=== PATIENT | male | born 1965 | race Caucasian/White ===

== ENCOUNTER 2024-06-22 18:37 | Inpatient (IN) | payer MEDICARE, OTHER, SELFPAY ==
[2024-06-22] VITALS (38 sets, daily range): BP systolic 156–202; BP diastolic 96–120; PULSE 88–130; RESP 6–29; TEMP 35.9–37.1; O2SAT 90–98; BMI 29.8; BMI 24.4
--- NOTE | 2024-06-22 18:47 | ED_ITS ---
HPI - General Adult General Date Seen: 06/22/24 Chief complaint: Seizure Stated complaint: alcohol withdrawal Time Seen by Provider: 06/22/24 18:46 History of Present Illness HPI narrative: History is limited by patient altered mental status. He was brought in by private car by his friend who reported that he is an alcoholic. He has been through withdrawal 3 times in the past 6 months and has had alcohol withdrawal seizures. Last drink was apparently 48 hours ago. As he was being wheeled up to the triage desk he suffered a generalized tonic- clonic seizure and was rushed immediately back to ER room 6. Seizure stopped around the time he got to ER room 6 and I was responding to his side. As I saw him in the room he was sitting up in his wheelchair, head tipped back, sonorous respirations but no active seizure activity. The nurses and I work together to bottle a lift him from the wheelchair and get him onto his ER bed. We cut off is close to get access and established IV. With concern for potential emesis, We temporarily positioned in the right lateral decubitus position and I help reposition his airway. He did not vomit. Subsequently we were able to roll him on to his back. We sat him up. We were able to secure a 18 gauge IV in his [facility]. Related Data Allergies Allergy/AdvReac Type Severity Reaction Status Date / Time acetaminophen (From Tylenol) Allergy Unknown Verified 06/22/24 19:54 [facility] Medical History (Updated 06/22/24 @ 23:56 by Mark Blanco MD) Thrombocytopenia ?D69.6 - Thrombocytopenia, unspecified (ICD-10) Chronic pain ?G89.29 - Other chronic pain (ICD-10) Cervical spine arthritis ?M47.812 - Spondylosis without myelopathy or radiculopathy, cervical region (ICD-10) Psoriasis ?L40.9 - Psoriasis, unspecified (ICD-10) Lactic acidosis ?E87.20 - Acidosis, unspecified (ICD-10) Acidosis, lactic ?E87.20 - Acidosis, unspecified (ICD-10) Pancreatitis ?K85.90 - Acute pancreatitis without necrosis or infection, unspecified (ICD- 10) Alcoholic hepatitis ?K70.10 - Alcoholic hepatitis without ascites (ICD-10) Alcohol withdrawal seizure ?F10.939 - Alcohol use, unspecified with withdrawal, unspecified (ICD-10) ?R56.9 - Unspecified convulsions (ICD-10) Alcohol use disorder ?F10.90 - Alcohol use, unspecified, uncomplicated (ICD-10) Social History (Updated 06/22/24 @ 23:47 by Mark Blanco MD) Narrative: He lives alone in [facility] apartment. Closest family is his daughter Violette. She is healthcare power of punchboard assembler. He smokes occasional cigars. He drinks at least a pint of Tequila and 2 cans of beer daily. No other recreational drug use. Code status is full. What is your current living situation?: I presently have a place to live Problems where you live: no known problems Problems where you live details: na In the past 12 months, utilities in danger of being shut off: no In past 12 months, lack of transportation kept you from medical appts, meetings, work, or getting things needed for daily living: no In the past 12 mos, have been you worried that your food would run out before you had money to buy more?: never true In the past 12 mos, the food you bought just didn't last and you didn't have money to buy more?: never true Highest level of school completed/degree received: 12th grade, no diploma Smoking Status: Unknown if ever smoked Second hand tobacco smoke exposure: No How often do you have a drink containing alcohol: 4 or more times a week Alcohol type: beer and hard liquor Alcohol type details: 1 pint of tequila and a quart of beer daily How many standard drinks containing alcohol do you have on a typical day: 5 or 6 How often do you have six or more drinks on one occasion: Daily or almost daily AUDIT-C Alcohol total score: 10 Non-prescribed substance use: denies use Caffeine: Yes (hot tea) How often does anyone, including family, friends and others, physically hurt you : never How often does anyone, including family, friends and others, insult or talk down to you: never How often does anyone, including family, friends and others, threaten you with harm: rarely How often does anyone, including family, friends and others, scream or curse at you: never service: No Health Related Social Needs: Other personal risk factors, not elsewhere classified (Z91.89) Exam Narrative: Exam Narrative: Primary Survey: A- sonorous respirations but breathing. B- breathing easily. Lung sounds clear and equal. Oxygen saturation normal on room air 94% C- appears to have sinus tachycardia about 110 on the monitor. no active bleeding. Blood pressure elevated D- GCS is 9 E 4, M 4, V1 but is immediately postictal. Constitutional: Appears well-developed and well-nourished. Drowsy and just finish seizing postictal, sonorous respirations. Skin is somewhat pale, sweaty. HENT: Head: Atraumatic. Nose: Nose normal. Mouth/Throat: Oral mucosa is clear and moist. no trismus. Pharynx normal. Tonsils symmetric. No tonsillar enlargement, erythema, or exudate. Eyes: Conjunctivae normal. EOM normal. Pupils equal, round, and reactive to light. No scleral icterus. Neck: Normal range of motion. Neck supple. No tracheal deviation present. Cardiovascular: Normal rate, regular rhythm. No gallop. No friction rub. No murmur heard. Symmetric radial artery pulses Pulmonary/Chest: Effort normal. No stridor. No respiratory distress. No wheezes. No rales. No rhonchi . Abdominal: Soft. Bowel sounds normal. No distension. No mass. No apparent tenderness. No rebound. No guarding. Musculoskeletal: RUE: Normal range of motion. No tenderness. No deformity LUE: Normal range of motion. No tenderness. No deformity RLE: Normal range of motion. No edema. No tenderness. No deformity LLE: Normal range of motion. No edema. No tenderness. No deformity Neurological: Nurses saw him have a generalized tonic-clonic seizure at triage and they immediately rushed back to ER room 6. Is I enter the room he is not seizing. He is having snoring respirations, limp. As we transfer him back to the bed he does flail his arms, not seizure activity. Seems confused. He is fighting getting undressed and getting exposed. He is not aggressive or dangerously fighting. Skin: Scaly salmon-colored plaques on his knees, periumbilical region, suspicious for 20 for psoriasis Skin is warm and dry. No rash noted. No pallor. Normal capillary refill. Psychiatric: Limited, nonverbal, postictal per Const: Vital Signs, click to edit/add: Vital Signs - 24 hr 06/22/24 18:47 06/22/24 18:58 06/22/24 19:00 Temperature 98.7 F Pulse Rate 118 H 94 Pulse Rate [Pulse Oximeter] Pulse Rate [Right Pulse Oximeter] 102 H Respiratory Rate 18 14 21 Blood Pressure Blood Pressure [Ri ght Arm] Blood Pressure [Ri ght Upper Arm] 202/118 H Pulse Oximetry 94 92 91 Oxygen Delivery Me thod Room Air Oxygen Flow Rate 06/22/24 19:02 06/22/24 19:03 06/22/24 19:20 Temperature Pulse Rate 116 H 130 H Pulse Rate [Pulse Oximeter] Pulse Rate [Right Pulse Oximeter] Respiratory Rate 21 23 12 Blood Pressure 164/103 H Blood Pressure [Ri ght Arm] Blood Pressure [Ri ght Upper Arm] Pulse Oximetry 91 92 Oxygen Delivery Me thod Oxygen Flow Rate 06/22/24 19:21 06/22/24 19:30 06/22/24 19:32 Temperature Pulse Rate 88 93 91 Pulse Rate [Pulse Oximeter] Pulse Rate [Right Pulse Oximeter] Respiratory Rate 18 11 L 17 Blood Pressure 156/96 H 164/105 H Blood Pressure [Ri ght Arm] Blood Pressure [Ri ght Upper Arm] Pulse Oximetry 94 93 93 Oxygen Delivery Me thod Oxygen Flow Rate 06/22/24 19:45 06/22/24 19:47 06/22/24 20:00 Temperature Pulse Rate 108 H 99 111 H Pulse Rate [Pulse Oximeter] Pulse Rate [Right Pulse Oximeter] Respiratory Rate 12 16 11 L Blood Pressure 160/106 H Blood Pressure [Ri ght Arm] Blood Pressure [Ri ght Upper Arm] Pulse Oximetry 92 90 93 Oxygen Delivery Me thod Oxygen Flow Rate 06/22/24 20:02 06/22/24 20:15 06/22/24 20:16 Temperature Pulse Rate 104 H 98 110 H Pulse Rate [Pulse Oximeter] Pulse Rate [Right Pulse Oximeter] Respiratory Rate 19 18 17 Blood Pressure 160/101 H 161/105 H Blood Pressure [Ri ght Arm] Blood Pressure [Ri ght Upper Arm] Pulse Oximetry 92 93 93 Oxygen Delivery Me thod Oxygen Flow Rate 06/22/24 20:17 06/22/24 20:30 06/22/24 20:32 Temperature Pulse Rate 107 H 122 H 119 H Pulse Rate [Pulse Oximeter] Pulse Rate [Right Pulse Oximeter] Respiratory Rate 18 13 20 Blood Pressure 165/105 H Blood Pressure [Ri ght Arm] Blood Pressure [Ri ght Upper Arm] Pulse Oximetry 94 94 95 Oxygen Delivery Me thod Oxygen Flow Rate 06/22/24 20:45 06/22/24 21:00 06/22/24 21:02 Temperature Pulse Rate 114 H 112 H 109 H Pulse Rate [Pulse Oximeter] Pulse Rate [Right Pulse Oximeter] Respiratory Rate 24 24 15 Blood Pressure 162/107 H Blood Pressure [Ri ght Arm] Blood Pressure [Ri ght Upper Arm] Pulse Oximetry 96 96 96 Oxygen Delivery Me thod Oxygen Flow Rate 06/22/24 21:24 06/22/24 21:30 06/22/24 21:31 Temperature Pulse Rate 122 H 105 H 109 H Pulse Rate [Pulse Oximeter] Pulse Rate [Right Pulse Oximeter] Respiratory Rate 26 H 17 29 H Blood Pressure 170/106 H Blood Pressure [Ri ght Arm] Blood Pressure [Ri ght Upper Arm] Pulse Oximetry 92 97 96 Oxygen Delivery Me thod Oxygen Flow Rate 06/22/24 21:34 06/22/24 21:45 06/22/24 21:47 Temperature Pulse Rate 105 H 103 H Pulse Rate [Pulse Oximeter] 114 H Pulse Rate [Right Pulse Oximeter] Respiratory Rate 16 16 15 Blood Pressure 164/105 H Blood Pressure [Ri ght Arm] 170/106 H Blood Pressure [Ri ght Upper Arm] Pulse Oximetry 95 96 97 Oxygen Delivery Me thod Nasal Cannula Oxygen Flow Rate 3 06/22/24 22:00 06/22/24 22:02 06/22/24 22:15 Temperature Pulse Rate 103 H 103 H 98 Pulse Rate [Pulse Oximeter] Pulse Rate [Right Pulse Oximeter] Respiratory Rate 14 15 11 L Blood Pressure 161/109 H Blood Pressure [Ri ght Arm] Blood Pressure [Ri ght Upper Arm] Pulse Oximetry 98 98 97 Oxygen Delivery Me thod Oxygen Flow Rate 06/22/24 22:17 06/22/24 22:30 06/22/24 22:31 Temperature Pulse Rate 100 103 H 99 Pulse Rate [Pulse Oximeter] Pulse Rate [Right Pulse Oximeter] Respiratory Rate 6 L 15 14 Blood Pressure 166/117 H 165/111 H Blood Pressure [Ri ght Arm] Blood Pressure [Ri ght Upper Arm] Pulse Oximetry 97 95 96 Oxygen Delivery Me thod Oxygen Flow Rate 06/22/24 22:32 06/22/24 22:45 06/22/24 22:46 Temperature Pulse Rate 96 96 93 Pulse Rate [Pulse Oximeter] Pulse Rate [Right Pulse Oximeter] Respiratory Rate 15 14 Blood Pressure 156/109 H Blood Pressure [Ri ght Arm] Blood Pressure [Ri ght Upper Arm] Pulse Oximetry 97 94 94 Oxygen Delivery Me thod Oxygen Flow Rate Course Course ED Course: Recheck-185. Resting in bed. Tachycardic 118 on the monitor, blood pressure 190/122. Temperature was 97.3?. Patient is now looking better. No longer pale and diaphoretic. Skin is pink. Skin is dry. He is arousable to loud voice. GCS is now 13 (3,6,4) Reevaluation(s) Reevaluation #1: Recheck-portable chest x-ray shows clear lungs. No evidence for infiltrate or CHF Recheck -740. P.m.. Lactic acid elevated. Suspect due to postictal state. Will recheck in about 1 hour after he completes his 2 L of fluid. Patient is more alert, more conversant. Alert and oriented to person, place, time, following commands. Able to provide some history. It sounds like he is an alcoholic. He reports drinking a pt of hard alcohol as well as a few beers every day, but then if I ask if I should double it he says yes. Sounds like he was drinking up until this afternoon but he wants to quit. He recalls having at least 1 seizure in the past. He does report a history of psoriatic arthritis and rheumatoid arthritis. He is not on any immunomodulatory medications or steroids. He does take gabapentin because of neck pain. He is also on some vitamin supplements. He is a smoker. It sounds like he does have asthma or emphysema. 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 He is not on home oxygen. Rechecking his sats he is hypoxic now on room air. Lung sounds are wheezy and coarse bilaterally. Will order DuoNeb. Still tremulous, tachycardic, hypertensive. Additional benzos and CIWA ordered Recheck-continues to be more alert. GCS 15 now. Oriented to person place and is off on the day of the month by 1 day. He is able to provide some history. It sounds like he quit drinking maybe a day or 2 ago but then had a drink at 3:00 a.m. this afternoon. He he does want to quit drinking. His only medication is gabapentin which he takes for his neck pain. He is also able to tell me that he has a history of psoriatic arthritis and rheumatoid arthritis. He is not on any immunosuppressive meds. Vital Signs Vital signs: Initial Vital Signs Temperature 98.7 F 06/22/24 18:47 Temperature Source Temporal Artery Scan 06/22/24 18:47 Pulse Rate 102 H 06/22/24 18:47 Pulse Rhythm Regular 06/22/24 18:47 Pulse Strength 3+ Normal 06/22/24 18:47 Respiratory Rate 18 06/22/24 18:47 Blood Pressure 202/118 H 06/22/24 18:47 Blood Pressure Mean 146 H 06/22/24 18:47 Blood Pressure Position Sitting 06/22/24 18:47 Pulse Oximetry 94 06/22/24 18:47 Oxygen Delivery Method Room Air 06/22/24 18:47 Vital Signs Temperature 98.7 F 06/22/24 18:47 Pulse Rate 102 H 06/22/24 18:47 Respiratory Rate 18 06/22/24 18:47 Blood Pressure 202/118 H 06/22/24 18:47 Pulse Oximetry 94 06/22/24 18:47 Oxygen Delivery Method Room Air 06/22/24 18:47 Temperature 96.7 F L 06/23/24 02:00 Pulse Rate 89 06/23/24 02:00 Respiratory Rate 18 06/23/24 02:00 Blood Pressure 145/99 H 06/23/24 02:00 Pulse Oximetry 93 06/23/24 02:00 Oxygen Delivery Method Room Air 06/23/24 02:00 Oxygen Flow Rate 3 06/22/24 21:34 Medications Administered Medications: Generic Name Dose Route Start Last Admin Trade Name Freq PRN Reason Stop Dose Admin Dextrose/Lactated Ringer's 1,000 mls @ 125 mls/hr 06/22/24 23:16 06/23/24 00:05 5 % Dextrose In Lac Ringer's IV 125 mls/hr .Q8H PADMA Administration Ibuprofen 400 mg 06/22/24 23:10 06/23/24 00:05 Ibuprofen 400 Mg Tablet PO 400 mg Q4H PRN Administration Omeprazole 20 mg 06/22/24 23:15 06/23/24 00:05 [address]ep[address] PO 20 mg BID PADMA Administration Discontinued Medications Generic Name Dose Route Start Last Admin Trade Name Ashley PRN Reason Stop Dose Admin Albuterol/Ipratropium 1 neb 06/22/24 19:42 06/22/24 20:00 Iprat-Albut 0.5-2.5 Mg/3 Ml Neb IH 06/22/24 19:43 1 neb ONCE ONE Administration Diazepam 10 mg 06/22/24 18:48 06/22/24 18:50 Diazepam 5 Mg/Ml Inj IV 06/22/24 18:49 10 mg ONCE ONE Administration Diazepam 10 mg 06/22/24 19:41 06/22/24 19:56 Diazepam 5 Mg/Ml Inj IV 06/22/24 19:42 10 mg ONCE ONE Administration Diazepam 10 mg 06/22/24 21:15 06/22/24 21:29 Diazepam 5 Mg/Ml Inj IV 06/22/24 21:16 10 mg ONCE ONE Administration Hydromorphone HCl 0.5 mg 06/22/24 21:15 06/22/24 21:31 Hydromorphone 0.5 Mg/0.5 Ml Inj IVP 0.5 mg Q1H PRN Administration Pain Hydromorphone HCl 0.5 mg 06/22/24 23:55 06/23/24 00:05 Hydromorphone 0.5 Mg/0.5 Ml Inj IVP 06/22/24 23:56 0.5 mg ONCE ONE Administration Thiamine HCl 250 mg/ Sodium 102.5 mls @ 102.5 mls/hr 06/22/24 18:50 06/22/24 23:07 Chloride IVPB 06/22/24 18:51 Infused ONCE ONE Infusion Folic Acid 1 mg/ Sodium 50.2 mls @ 100.4 mls/hr 06/22/24 18:49 06/22/24 23:08 Chloride IVPB 06/22/24 18:50 Infused ONCE ONE Infusion Sodium Chloride 1,000 mls @ 1,000 mls/hr 06/22/24 19:00 06/22/24 19:48 0.9 % Sodium Chloride 1000 Ml IV 06/22/24 19:59 Infused .Q1H PADMA Infusion Sodium Chloride 500 mls @ 500 mls/hr 06/22/24 19:30 06/22/24 23:39 0.9 % Sodium Chloride 500 Ml IV 06/22/24 20:29 Not Given .Q1H ONE Sodium Chloride 1,000 mls @ 1,000 mls/hr 06/22/24 19:51 06/22/24 23:08 0.9 % Sodium Chloride 1000 Ml IV 06/22/24 20:50 Infused .Q1H PADMA Infusion Phenobarbital 260 mg/ Sodium 104 mls @ 208 mls/hr 06/22/24 23:54 06/23/24 01:14 Chloride IVPB 06/22/24 23:55 Infused ONCE ONE Infusion Phenobarbital 130 mg 06/22/24 18:48 06/22/24 19:58 Phenobarbital 65 Mg/Ml Inj IVP 06/22/24 18:49 130 mg ONCE ONE Administration Phenobarbital 520 mg 06/22/24 21:52 06/22/24 22:18 Phenobarbital 65 Mg/Ml Inj IVP 06/22/24 21:53 520 mg ONCE ONE Administration Medical Decision Making MDM Narrative Medical decision making narrative: 59-year-old male presents to the ER today from his home with alcohol withdrawal. He actually suffered a generalized tonic clonic seizure at the triage desk just after he came through the front door and was rushed back to the ER for initial resuscitation. Fortunately his seizure was self limited. He was deeply unresponsive, near comatose in the for seconds after the seizure, due to postictal phase. He required airway positioning and rolling. Blood sugar was normal. Stat head CT was normal. Fortunately mental status gradually and steadily improved. He ultimately became more alert. Therefore did not require intubation for airway protection. He is displaying other signs of alcohol withdrawal including tremulousness, tachycardia, and hypertension. We administered serial doses of IV diazepam and phenobarbital here in the ER. Will be admitted to the in the ICU for alcohol withdrawal. Thiamine and folate administered. Initial laboratory workup showed a lactic of 18. This normalized down to 2.4 after infusion of 2 L of crystalloid and time. Suspect his initial lactic acidosis was due to seizure activity rather than sepsis or critical illness. Initial metabolic profile showed a low bicarb and a markedly widened anion gap, due to lactic acidosis. Blood sugar was 238. After fluent confirm a repeat BMP shows good correction of the anion gap indicating was likely due to his lactic acidosis. At this point no evidence for DKA a. No definitive evidence for alcoholic ketoacidosis. Liver function tests are abnormal, likely due to alcohol consumption. Labs also show lipase of 640. He is not having any abdominal pain or tenderness so this point unclear if this truly represents alcoholic pancreatitis. Graciously admitted to the ICU by Dr. Blanco, hospitalist Lab Data Labs: Lab Results 06/22/24 06/22/24 06/22/24 Range/Units 18:45 18:45 18:45 WBC 5.95 (4.50-11.00) K/uL RBC 4.44 (4.30-5.90) m/uL Hgb 14.4 (13.5-17.5) gm/dL Hct 44.1 (37.0-53.0) % MCV 99 (80-100) fL MCH 32 (26-34) pg MCHC 33 (32-36) gm/dL RDW Coeff of Velasquez 15.5 (11.5-15.5) % Plt Count 74 L (140-440) K/uL Neut % (Auto) 54.6 (42.0-72.0) % Lymph % (Auto) 24.4 (20-44) % Tyler % (Auto) 17.0 H (0.0-11.0) % Eos % (Auto) 0.5 (0.0-7.0) % Baso % (Auto) 0.3 (0.0-3.0) % Neut # (Auto) 3.25 (1.7-7.0) K/uL Lymph # (Auto) 1.45 (0.90-2.90) K/uL Tyler # (Auto) 1.00 H (0.00-0.90) K/UL Eos # (Auto) 0.03 (0.00-0.50) K/uL Baso # (Auto) 0.02 (0.00-0.30) K/uL Abs Immat Gran (auto) 0.19 (0.00-0.30) K/uL Imm/Tot Granulo (auto) 3.2 % Diff Slide Review Acceptable Review (Acceptable) INR 0.96 (0.91-1.10) APTT 24 (23-33) Seconds VBG pH (7.32-7.43) VBG pCO2 (40-50) mmHG VBG pO2 (25-47) mmHG VBG HCO3 (21-28) mmol/L Sodium 137 (135-149) mmol/L Potassium 3.5 L (3.6-5.1) mmol/L Chloride 95 L (96-114) mmol/L Carbon Dioxide 9 L* (20-32) mmol/L Anion Gap 33 H (7-15) mEq/L BUN 8 (7-30) mg/dL Creatinine 1.2 (0.5-1.5) mg/dL Estimated Creat Clear 72.75 Estimated GFR 70 ml/min Glucose 266 H (60-115) mg/dL Lactate 18.0 H* (0.5-1.9) mmol/L Calcium 9.7 (8.4-10.6) mg/dL Phosphorus 3.7 (2.5-4.5) mg/dL Magnesium 1.8 (1.5-2.6) mg/dL Total Bilirubin 1.8 H (0.1-1.5) mg/dL AST 368 H (12-35) U/L ALT 200 H (4-50) U/L Alkaline Phosphatase 127 (40-150) U/L Troponin I 0.03 Cancelled (0.01-0.04) ng/mL Total Protein 8.3 (6.0-8.3) g/dL Albumin 5.3 H (3.3-5.0) g/dL Lipase 640 H (23-300) U/L Urine Color (Yellow) Urine Appearance (Clear) Urine pH (5.0-8.5) Ur Specific Greenfield (1.000-1.030) Urine Protein (Negative) Urine Glucose (UA) (Negative) Urine Ketones (Negative) Urine Blood (Negative) Urine Nitrite (Negative) Urine Bilirubin (Negative) Urine Urobilinogen (0.2-1.0) Ur Leukocyte Esterase (Negative) Urine RBC (0-2) Urine WBC (0-5) Ur Squamous Epith Cells (None-Few) Urine Bacteria (None) Urine Opiates Screen (Negative) Ur Oxycodone Screen (Negative) Urine Methadone Screen (Negative) Ur Barbiturates Screen (Negative) U Tricyclic Antidepress (Negative) Ur Phencyclidine Scrn (Negative) Ur Amphetamines Screen (Negative) U Methamphetamines Scrn (Negative) U Benzodiazepines Scrn (Negative) Urine Cocaine Screen (Negative) U Marijuana (THC) Screen (Negative) Ur Drug Screen Comment Ethyl Alcohol < 0.01 L Cancelled (0.01-0.03) % SARS-CoV-2 (PCR) Negative SARS-CoV-2 (Negative) Influenza Type A (PCR) Negative PCR FLU A (Negative) Influenza Type B (PCR) Negative PCR FLU B (Negative) 06/22/24 06/22/24 06/22/24 Range/Units 18:50 19:56 20:30 WBC (4.50-11.00) K/uL RBC (4.30-5.90) m/uL Hgb (13.5-17.5) gm/dL Hct (37.0-53.0) % MCV (80-100) fL MCH (26-34) pg MCHC (32-36) gm/dL RDW Coeff of Velasquez (11.5-15.5) % Plt Count (140-440) K/uL Neut % (Auto) (42.0-72.0) % Lymph % (Auto) (20-44) % Tyler % (Auto) (0.0-11.0) % Eos % (Auto) (0.0-7.0) % Baso % (Auto) (0.0-3.0) % Neut # (Auto) (1.7-7.0) K/uL Lymph # (Auto) (0.90-2.90) K/uL Tyler # (Auto) (0.00-0.90) K/UL Eos # (Auto) (0.00-0.50) K/uL Baso # (Auto) (0.00-0.30) K/uL Abs Immat Gran (auto) (0.00-0.30) K/uL Imm/Tot Granulo (auto) % Diff Slide Review (Acceptable) INR (0.91-1.10) APTT (23-33) Seconds VBG pH 7.451 H (7.32-7.43) VBG pCO2 33 L (40-50) mmHG VBG pO2 51.7 H (25-47) mmHG VBG HCO3 23 (21-28) mmol/L Sodium 133 L (135-149) mmol/L Potassium 3.6 (3.6-5.1) mmol/L Chloride 99 (96-114) mmol/L Carbon Dioxide 20 (20-32) mmol/L Anion Gap 14 (7-15) mEq/L BUN 8 (7-30) mg/dL Creatinine 0.9 (0.5-1.5) mg/dL Estimated Creat Clear 97.00 Estimated GFR 98 ml/min Glucose 238 H (60-115) mg/dL Lactate (0.5-1.9) mmol/L Calcium 9.0 (8.4-10.6) mg/dL Phosphorus (2.5-4.5) mg/dL Magnesium (1.5-2.6) mg/dL Total Bilirubin (0.1-1.5) mg/dL AST (12-35) U/L ALT (4-50) U/L Alkaline Phosphatase (40-150) U/L Troponin I (0.01-0.04) ng/mL Total Protein (6.0-8.3) g/dL Albumin (3.3-5.0) g/dL Lipase (23-300) U/L Urine Color Yellow (Yellow) Urine Appearance Clear (Clear) Urine pH 7.0 (5.0-8.5) Ur Specific Greenfield 1.020 (1.000-1.030) Urine Protein 2+ A (Negative) Urine Glucose (UA) 3+ A (Negative) Urine Ketones 2+ A (Negative) Urine Blood Trace-lysed A (Negative) Urine Nitrite Negative (Negative) Urine Bilirubin Negative (Negative) Urine Urobilinogen 2.0 A (0.2-1.0) Ur Leukocyte Esterase Negative (Negative) Urine RBC 0-2 (0-2) Urine WBC 0-2 (0-5) Ur Squamous Epith Cells Few (None-Few) Urine Bacteria None (None) Urine Opiates Screen Negative (Negative) Ur Oxycodone Screen Negative (Negative) Urine Methadone Screen Negative (Negative) Ur Barbiturates Screen POSITIVE A (Negative) U Tricyclic Antidepress Negative (Negative) Ur Phencyclidine Scrn Negative (Negative) Ur Amphetamines Screen Negative (Negative) U Methamphetamines Scrn Negative (Negative) U Benzodiazepines Scrn Negative (Negative) Urine Cocaine Screen Negative (Negative) U Marijuana (THC) Screen Negative (Negative) Ur Drug Screen Comment See Note Ethyl Alcohol (0.01-0.03) % SARS-CoV-2 (PCR) (Negative) Influenza Type A (PCR) (Negative) Influenza Type B (PCR) (Negative) 06/22/24 Range/Units 21:10 WBC (4.50-11.00) K/uL RBC (4.30-5.90) m/uL Hgb (13.5-17.5) gm/dL Hct (37.0-53.0) % MCV (80-100) fL MCH (26-34) pg MCHC (32-36) gm/dL RDW Coeff of Velasquez (11.5-15.5) % Plt Count (140-440) K/uL Neut % (Auto) (42.0-72.0) % Lymph % (Auto) (20-44) % Tyler % (Auto) (0.0-11.0) % Eos % (Auto) (0.0-7.0) % Baso % (Auto) (0.0-3.0) % Neut # (Auto) (1.7-7.0) K/uL Lymph # (Auto) (0.90-2.90) K/uL Tyler # (Auto) (0.00-0.90) K/UL Eos # (Auto) (0.00-0.50) K/uL Baso # (Auto) (0.00-0.30) K/uL Abs Immat Gran (auto) (0.00-0.30) K/uL Imm/Tot Granulo (auto) % Diff Slide Review (Acceptable) INR (0.91-1.10) APTT (23-33) Seconds VBG pH (7.32-7.43) VBG pCO2 (40-50) mmHG VBG pO2 (25-47) mmHG VBG HCO3 (21-28) mmol/L Sodium (135-149) mmol/L Potassium (3.6-5.1) mmol/L Chloride (96-114) mmol/L Carbon Dioxide (20-32) mmol/L Anion Gap (7-15) mEq/L BUN (7-30) mg/dL Creatinine (0.5-1.5) mg/dL Estimated Creat Clear Estimated GFR ml/min Glucose (60-115) mg/dL Lactate 2.4 H (0.5-1.9) mmol/L Calcium (8.4-10.6) mg/dL Phosphorus (2.5-4.5) mg/dL Magnesium (1.5-2.6) mg/dL Total Bilirubin (0.1-1.5) mg/dL AST (12-35) U/L ALT (4-50) U/L Alkaline Phosphatase (40-150) U/L Troponin I (0.01-0.04) ng/mL Total Protein (6.0-8.3) g/dL Albumin (3.3-5.0) g/dL Lipase (23-300) U/L Urine Color (Yellow) Urine Appearance (Clear) Urine pH (5.0-8.5) Ur Specific [place] (1.000-1.030) Urine Protein (Negative) Urine Glucose (UA) (Negative) Urine Ketones (Negative) Urine Blood (Negative) Urine Nitrite (Negative) Urine Bilirubin (Negative) Urine Urobilinogen (0.2-1.0) Ur Leukocyte Esterase (Negative) Urine RBC (0-2) Urine WBC (0-5) Ur Squamous Epith Cells (None-Few) Urine Bacteria (None) Urine Opiates Screen (Negative) Ur Oxycodone Screen (Negative) Urine Methadone Screen (Negative) Ur Barbiturates Screen (Negative) U Tricyclic Antidepress (Negative) Ur Phencyclidine Scrn (Negative) Ur Amphetamines Screen (Negative) U Methamphetamines Scrn (Negative) U Benzodiazepines Scrn (Negative) Urine Cocaine Screen (Negative) U Marijuana (THC) Screen (Negative) Ur Drug Screen Comment Ethyl Alcohol (0.01-0.03) % SARS-CoV-2 (PCR) (Negative) Influenza Type A (PCR) (Negative) Influenza Type B (PCR) (Negative) Imaging Data Chest x-ray: Attestation: I have reviewed the pertinent imaging results. My impression: No acute infiltrate. Clear lungs. Radiologist's impression: IMPRESSION: No acute cardiopulmonary process. CT scan - head: Attestation: I have reviewed the pertinent imaging results. Radiologist's impression: IMPRESSION: No acute or suspicious intracranial abnormality. ECG Data Attestation: I personally reviewed and interpreted this ECG as follows: Interpretation: Sinus tachycardia Rate: 129 VA: 100-120 QRS axis: Normal QRS axis. No pathologic Q-waves ST segment/T wave: No ST segment elevation or depression QTc: 465 Discharge Plan Discharge Clinical Impression: Alcohol withdrawal, Seizure, Acidosis, lactic, Hypoxia, Abnormal serum level of lipase Patient Disposition: Admitted As Observation
[2024-06-22] MEDS: 0.9 % SODIUM CHLORIDE 1000 ml 1,000 ML IV ×2 (18:50→19:52)
[2024-06-22] MEDS: diazePAM 5 MG/ML inj 10 MG IV ×3 (18:50→21:29)
[2024-06-22 19:05] LABS: Basophils Absolute Auto 0.02 K/uL (0.00-0.30); Basophils Percent Auto 0.3 % (0.0-3.0); Eosinophils Absolute Auto 0.03 K/uL (0.00-0.50); Eosinophils Percent Auto 0.5 % (0.0-7.0); Hematocrit 44.1 % (37.0-53.0); Hemoglobin* 14.4 gm/dL (13.5-17.5); Immature Granulocytes Abs Auto 0.19 K/uL (0.00-0.30); Immature Granulocytes Pct Auto 3.2 %; Lymphocytes Absolute Auto 1.45 K/uL (0.90-2.90); Lymphocytes Percent Auto 24.4 % (20-44); Mean Corpuscular HGB Conc 33 gm/dL (32-36); Mean Corpuscular Hemoglobin 32 pg (26-34); Mean Corpuscular Volume 99 fL (80-100); Neutrophils Absolute Auto 3.25 K/uL (1.7-7.0); Neutrophils Percent Auto 54.6 % (42.0-72.0); Platelet Count* 74 K/uL (140-440); RDW Coefficient of Variation % 15.5 % (11.5-15.5); Red Blood Count 4.44 m/uL (4.30-5.90); White Blood Count* 5.95 K/uL (4.50-11.00)
[2024-06-22 19:24] LABS: Albumin* 5.3 g/dL (3.3-5.0); Chloride* 95 mmol/L (96-114)
[2024-06-22 19:25] LABS: Potassium* 3.5 mmol/L (3.6-5.1); Sodium* 137 mmol/L (135-149)
[2024-06-22 19:27] LABS: Anion Gap 33 mEq/L (7-15); Bilirubin Total* 1.8 mg/dL (0.1-1.5); Blood Urea Nitrogen* 8 mg/dL (7-30); Creatinine* 1.2 mg/dL (0.5-1.5); Est. Creatinine Clearance* 72.75; Estimated Glomerular Filt Rate 70 ml/min; Total Protein* 8.3 g/dL (6.0-8.3)
[2024-06-22 19:28] LABS: Alkaline Phosphatase* 127 U/L (40-150); Aspartate Amino Transferase* 368 U/L (12-35); Calcium* 9.7 mg/dL (8.4-10.6); Glucose* 266 mg/dL (60-115); Lipase* 640 U/L (23-300); Magnesium* 1.8 mg/dL (1.5-2.6)
[2024-06-22 19:30] LABS: Ethanol* < 0.01 % (0.01-0.03)
[2024-06-22 19:34] LABS: Carbon Dioxide* 9 mmol/L (20-32)
[2024-06-22 19:35] LABS: Alanine Aminotransferase* 200 U/L (4-50)
[2024-06-22 19:40] LABS: PCR FLU A Negative PCR FLU A (Negative); PCR FLU B Negative PCR FLU B (Negative); SARS PCR* Negative SARS-CoV-2 (Negative); Troponin I* 0.03 ng/mL (0.01-0.04)
[2024-06-22 19:56] LABS: INR 0.96 (0.91-1.10); Partial Thromboplastin Time* 24 Seconds (23-33); Prothrombin Time 13.5 Seconds
[2024-06-22 19:57] LABS: Phosphorus* 3.7 mg/dL (2.5-4.5)
[2024-06-22] MEDS: PHENobarbitaL 65 MG/ML inj 130 MG IVP (19:58)
[2024-06-22] MEDS: IPRAT-ALBUT 0.5-2.5 MG/3 ML NEB 1 NEB IH (20:00)
[2024-06-22 20:01] LABS: HCO3 VBG 23 mmol/L (21-28); PCO2 VBG 33 mmHG (40-50); PO2 VBG 51.7 mmHG (25-47); pH VBG 7.451 (7.32-7.43)
[2024-06-22] MEDS: THIAMINE 250 MG in 0.9 % SODIUM CHLORIDE 100 ml 100 ML 102.5 MG IVPB (20:04)
[2024-06-22] MEDS: FOLIC ACID 1 MG in 0.9 % SODIUM CHLORIDE 50 ml 50 ML 100.4 MG IVPB (20:05)
[2024-06-22 20:48] LABS: Appearance Urine Clear (Clear); Bilirubin Urine Negative (Negative); Blood Urine Trace-lysed (Negative); Color Urine Yellow (Yellow); Glucose Urine 3+ (Negative); Ketones Urine 2+ (Negative); Leukocyte Esterase Urine Negative (Negative); Nitrite Urine Negative (Negative); Protein Urine 2+ (Negative)
[2024-06-22 20:48] LABS: Chloride* 99 mmol/L (96-114)
[2024-06-22 20:49] LABS: Potassium* 3.6 mmol/L (3.6-5.1); Sodium* 133 mmol/L (135-149)
[2024-06-22 20:52] LABS: Anion Gap 14 mEq/L (7-15); Blood Urea Nitrogen* 8 mg/dL (7-30); Carbon Dioxide* 20 mmol/L (20-32); Creatinine* 0.9 mg/dL (0.5-1.5); Estimated Glomerular Filt Rate 98 ml/min; Glucose* 238 mg/dL (60-115)
[2024-06-22 21:16] LABS: Lactate* 2.4 mmol/L (0.5-1.9)
[2024-06-22 21:20] LABS: RBC Urine 0-2 (0-2); Squamous Epithelial Cell Urine Few (None-Few); WBC Urine 0-2 (0-5)
[2024-06-22] MEDS: HYDROmorphone 0.5 mg/0.5 ml inj IVP (21:31)
[2024-06-22 21:34] LABS: Slide Review Reflex Yes
[2024-06-22 21:39] LABS: Slide Review Acceptable Review (Acceptable)
[2024-06-22] MEDS: PHENobarbitaL 65 MG/ML inj 520 MG IVP (22:18)
--- NOTE | 2024-06-22 23:36 | PM.IMHP1 ---
Hospitalist- H&P: PRETTY History of Present Illness Date Seen: 06/22/24 Chief complaint: Alcohol withdrawal Narrative: Blayne Carter is a 59 year old male with history of alcohol use disorder and alcohol withdrawal seizures admitted to the hospital with alcohol withdrawal seizure. He was brought to the emergency room by his daughter's boyfriend. He has dropped off and had a seizure while he was checking into the emergency department. Immediately brought back to a room where the seizure spontaneously stopped. He was postictal for a while. He received multiple doses of diazepam and a partial load of phenobarbital. Since then he has been improving with signs and symptoms of withdrawal and had no further seizures. He had a fairly severe lactic acidosis initially. That has improved with time and 2 L of normal saline. Patient is somewhat sedated but is able to answer some questions at this time. He tells me he stop drinking 2 days ago. Unclear why stop drinking but he tells me he is not feeling well and also stopped eating. A reports a poor appetite and nausea but he has not been vomiting. He tells me his biggest concern is his chronic pain problems. He reports generalized musculoskeletal pain especially in his C-spine, shoulders, feet and also residual pain from an L5 fracture. He takes ibuprofen at home for pain management. He was hospitalized in December 2023 in [place] for a syncopal episode that occurred while he was drinking alcohol at a restaurant. Stayed overnight in the emergency department and woke up the next day and went home. In April of 2024 he was in [place] [facility] when he had a seizure which was probably an alcohol withdrawal seizure. Again hospitalized overnight and discharged to home. He has declined offers of treatment for alcohol use disorder. [facility] Medical History (Updated 06/22/24 @ 23:56 by Mark Blanco MD) Thrombocytopenia ?D69.6 - Thrombocytopenia, unspecified (ICD-10) Chronic pain ?G89.29 - Other chronic pain (ICD-10) Cervical spine arthritis ?M47.812 - Spondylosis without myelopathy or radiculopathy, cervical region (ICD-10) Psoriasis ?L40.9 - Psoriasis, unspecified (ICD-10) Lactic acidosis ?E87.20 - Acidosis, unspecified (ICD-10) Acidosis, lactic ?E87.20 - Acidosis, unspecified (ICD-10) Pancreatitis ?K85.90 - Acute pancreatitis without necrosis or infection, unspecified (ICD-10) Alcoholic hepatitis ?K70.10 - Alcoholic hepatitis without ascites (ICD-10) Alcohol withdrawal seizure ?F10.939 - Alcohol use, unspecified with withdrawal, unspecified (ICD-10) ?R56.9 - Unspecified convulsions (ICD-10) Alcohol use disorder ?F10.90 - Alcohol use, unspecified, uncomplicated (ICD-10) Social History (Updated 06/22/24 @ 23:47 by Mark Blanco MD) Narrative: He lives alone in [facility] apartment. Closest family is his daughter Violette. She is healthcare power of employment attorney. He smokes occasional cigars. He drinks at least a pint of Tequila and 2 cans of beer daily. No other recreational drug use. Code status is full. What is your current living situation?: I presently have a place to live Problems where you live: no known problems Problems where you live details: na In the past 12 months, utilities in danger of being shut off: no In past 12 months, lack of transportation kept you from medical appts, meetings, work, or getting things needed for daily living: no In the past 12 mos, have been you worried that your food would run out before you had money to buy more?: never true In the past 12 mos, the food you bought just didn't last and you didn't have money to buy more?: never true Highest level of school completed/degree received: 12th grade, no diploma Smoking Status: Unknown if ever smoked Second hand tobacco smoke exposure: No How often do you have a drink containing alcohol: 4 or more times a week Alcohol type: beer and hard liquor Alcohol type details: 1 pint of tequila and a quart of beer daily How many standard drinks containing alcohol do you have on a typical day: 5 or 6 How often do you have six or more drinks on one occasion: Daily or almost daily AUDIT-C Alcohol total score: 10 Non-prescribed substance use: denies use Caffeine: Yes (hot tea) How often does anyone, including family, friends and others, physically hurt you: never How often does anyone, including family, friends and others, insult or talk down to you: never How often does anyone, including family, friends and others, threaten you with harm: rarely How often does anyone, including family, friends and others, scream or curse at you: never service: No Health Related Social Needs: Other personal risk factors, not elsewhere classified (Z91.89) Meds Home Medications and Allergies Home Medication Comments: Patient indicates using inhalers, Spiriva, Symbicort, Ventolin. He takes vitamins. He also takes atenolol. He ran out of gabapentin. He takes ibuprofen regularly. Takes a number of vitamin supplements but is not sure which ones. Allergies Allergy/AdvReac Type Severity Reaction Status Date / Time acetaminophen (From Tylenol) Allergy Unknown Verified 06/22/24 19:54 Exam Narrative: Exam Narrative: He is sleepy but arouses to voice. He is not oriented to his place or circumstances. He is unsure how he got here. He does not recall any of the events leading up to his coming to the hospital. He is unable to tell me much detail about the last 2 days other than he stop drinking and he has not been eating. Eyes normal. Sclerae nonicteric. Extraocular movements are full. No nystagmus. Oropharynx is normal. There is no facial asymmetry. Neck is supple without mass or adenopathy. Respirations are clear to auscultation. Cardiovascular: S1, S2, borderline tachycardia, regular rate and rhythm. Abdomen: Bowel sounds active. Abdomen is soft. He has no significant tenderness but a little bit of voluntary guarding with palpation in the epigastrium. No peritonitis. No mass. Extremities without significant tremulousness. He moves all 4 extremities well. No significant edema. Skin is notable for significant psoriatic plaques over knees and feet. Const: Vital Signs, click to edit/add: Vital Signs - 24 hr 06/22/24 18:47 06/22/24 18:58 06/22/24 19:00 Temperature 98.7 F Pulse Rate 118 H 94 Pulse Rate [Pulse Oximeter] Pulse Rate [Right Pulse Oximeter] 102 H Respiratory Rate 18 14 21 Blood Pressure Blood Pressure [Ri ght Arm] Blood Pressure [Ri ght Upper Arm] 202/118 H Pulse Oximetry 94 92 91 Oxygen Delivery Me thod Room Air Oxygen Flow Rate 06/22/24 19:02 06/22/24 19:03 06/22/24 19:20 Temperature Pulse Rate 116 H 130 H Pulse Rate [Pulse Oximeter] Pulse Rate [Right Pulse Oximeter] Respiratory Rate 21 23 12 Blood Pressure 164/103 H Blood Pressure [Ri ght Arm] Blood Pressure [Ri ght Upper Arm] Pulse Oximetry 91 92 Oxygen Delivery Me thod Oxygen Flow Rate 06/22/24 19:21 06/22/24 19:30 06/22/24 19:32 Temperature Pulse Rate 88 93 91 Pulse Rate [Pulse Oximeter] Pulse Rate [Right Pulse Oximeter] Respiratory Rate 18 11 L 17 Blood Pressure 156/96 H 164/105 H Blood Pressure [Ri ght Arm] Blood Pressure [Ri ght Upper Arm] Pulse Oximetry 94 93 93 Oxygen Delivery Me thod Oxygen Flow Rate 06/22/24 19:45 06/22/24 19:47 06/22/24 20:00 Temperature Pulse Rate 108 H 99 111 H Pulse Rate [Pulse Oximeter] Pulse Rate [Right Pulse Oximeter] Respiratory Rate 12 16 11 L Blood Pressure 160/106 H Blood Pressure [Ri ght Arm] Blood Pressure [Ri ght Upper Arm] Pulse Oximetry 92 90 93 Oxygen Delivery Me thod Oxygen Flow Rate 06/22/24 20:02 06/22/24 20:15 06/22/24 20:16 Temperature Pulse Rate 104 H 98 110 H Pulse Rate [Pulse Oximeter] Pulse Rate [Right Pulse Oximeter] Respiratory Rate 19 18 17 Blood Pressure 160/101 H 161/105 H Blood Pressure [Ri ght Arm] Blood Pressure [Ri ght Upper Arm] Pulse Oximetry 92 93 93 Oxygen Delivery Me thod Oxygen Flow Rate 06/22/24 20:17 06/22/24 20:30 06/22/24 20:32 Temperature Pulse Rate 107 H 122 H 119 H Pulse Rate [Pulse Oximeter] Pulse Rate [Right Pulse Oximeter] Respiratory Rate 18 13 20 Blood Pressure 165/105 H Blood Pressure [Ri ght Arm] Blood Pressure [Ri ght Upper Arm] Pulse Oximetry 94 94 95 Oxygen Delivery Me thod Oxygen Flow Rate 06/22/24 20:45 06/22/24 21:00 06/22/24 21:02 Temperature Pulse Rate 114 H 112 H 109 H Pulse Rate [Pulse Oximeter] Pulse Rate [Right Pulse Oximeter] Respiratory Rate 24 24 15 Blood Pressure 162/107 H Blood Pressure [Ri ght Arm] Blood Pressure [Ri ght Upper Arm] Pulse Oximetry 96 96 96 Oxygen Delivery Me thod Oxygen Flow Rate 06/22/24 21:24 06/22/24 21:30 06/22/24 21:31 Temperature Pulse Rate 122 H 105 H 109 H Pulse Rate [Pulse Oximeter] Pulse Rate [Right Pulse Oximeter] Respiratory Rate 26 H 17 29 H Blood Pressure 170/106 H Blood Pressure [Ri ght Arm] Blood Pressure [Ri ght Upper Arm] Pulse Oximetry 92 97 96 Oxygen Delivery Me thod Oxygen Flow Rate 06/22/24 21:34 06/22/24 21:45 06/22/24 21:47 Temperature Pulse Rate 105 H 103 H Pulse Rate [Pulse Oximeter] 114 H Pulse Rate [Right Pulse Oximeter] Respiratory Rate 16 16 15 Blood Pressure 164/105 H Blood Pressure [Ri ght Arm] 170/106 H Blood Pressure [Ri ght Upper Arm] Pulse Oximetry 95 96 97 Oxygen Delivery Me thod Nasal Cannula Oxygen Flow Rate 3 06/22/24 22:00 06/22/24 22:02 06/22/24 22:15 Temperature Pulse Rate 103 H 103 H 98 Pulse Rate [Pulse Oximeter] Pulse Rate [Right Pulse Oximeter] Respiratory Rate 14 15 11 L Blood Pressure 161/109 H Blood Pressure [Ri ght Arm] Blood Pressure [Ri ght Upper Arm] Pulse Oximetry 98 98 97 Oxygen Delivery Me thod Oxygen Flow Rate 06/22/24 22:17 06/22/24 22:30 06/22/24 22:31 Temperature Pulse Rate 100 103 H 99 Pulse Rate [Pulse Oximeter] Pulse Rate [Right Pulse Oximeter] Respiratory Rate 6 L 15 14 Blood Pressure 166/117 H 165/111 H Blood Pressure [Ri ght Arm] Blood Pressure [Ri ght Upper Arm] Pulse Oximetry 97 95 96 Oxygen Delivery Me thod Oxygen Flow Rate 06/22/24 22:32 06/22/24 22:45 06/22/24 22:46 Temperature Pulse Rate 96 96 93 Pulse Rate [Pulse Oximeter] Pulse Rate [Right Pulse Oximeter] Respiratory Rate 15 14 Blood Pressure 156/109 H Blood Pressure [Ri ght Arm] Blood Pressure [Ri ght Upper Arm] Pulse Oximetry 97 94 94 Oxygen Delivery Me thod Oxygen Flow Rate Documenting provider has reviewed patient's vital signs: yes Hospitalist - H&P: Result Labs Labs: Short CBC 06/22/24 Range/Units 18:45 WBC 5.95 (4.50-11.00) K/uL Hgb 14.4 (13.5-17.5) gm/dL Hct 44.1 (37.0-53.0) % Plt Count 74 L (140-440) K/uL BMP 06/22/24 06/22/24 18:45 20:30 Sodium 137 133 L Potassium 3.5 L 3.6 Chloride 95 L 99 Carbon Dioxide 9 L* 20 BUN 8 8 Creatinine 1.2 0.9 Glucose 266 H 238 H Calcium 9.7 9.0 Cardiac Enzymes 06/22/24 06/22/24 Range/Units 18:45 18:45 Troponin I 0.03 Cancelled (0.01-0.04) ng/mL Liver Function 06/22/24 Range/Units 18:45 Total Bilirubin 1.8 H (0.1-1.5) mg/dL AST 368 H (12-35) U/L ALT 200 H (4-50) U/L Alkaline Phosphatase 127 (40-150) U/L Albumin 5.3 H (3.3-5.0) g/dL Urine 06/22/24 Range/Units 18:50 Urine Color Yellow (Yellow) Urine Appearance Clear (Clear) Urine pH 7.0 (5.0-8.5) Ur Specific [place] 1.020 (1.000-1.030) Urine Protein 2+ A (Negative) Urine Glucose (UA) 3+ A (Negative) Assessment and Plan Assessment and plan (1) Alcohol withdrawal seizure: Problem comment: Recurrent alcohol withdrawal seizure. Received diazepam and phenobarbital. Status: Acute (2) Alcoholic hepatitis: Problem comment: Elevated transaminases, AST greater than ALT, likely due to alcohol abuse. Follow clinically Status: Acute (3) Pancreatitis: Problem comment: Biochemical pancreatitis without abdominal pain, likely due to alcohol abuse. Follow clinically Status: Acute (4) Chronic pain: Problem comment: Generalized arthritis pain including C-spine, shoulders, feet and ankles. Avoid opiates if possible due to risks with benzodiazepines and substance abuse history. Status: Acute (5) Thrombocytopenia: Problem comment: Possibly related to complications of cirrhosis of the liver and portal hypertension Status: Acute (6) Acidosis, lactic: Problem comment: Due to alcohol abuse, suspected cirrhosis and seizure seizure. Status: Acute (7) Alcohol use disorder: Problem comment: Recommend treatment to work towards abstinence Status: Acute Plan 59-year-old male with recurrent alcohol withdrawal seizures admitted to the hospital for ongoing evaluation management of alcohol withdrawal. Admitted to the CCU for close monitoring and management of alcohol withdrawal. Total Time Spent Total Time Spent: Total time spent today is 70 minutes in critical care evaluation and management
[2024-06-22 23:47] LABS: Amphetamine Screen Urine Negative (Negative); Barbiturate Screen Urine POSITIVE (Negative); Benzodiazepines Screen Urine Negative (Negative); Cannabinoid Screen Urine Negative (Negative); Cocaine Screen Urine Negative (Negative); Methadone Screen Urine Negative (Negative); Methamphetamines Screen Urine Negative (Negative); Opiate Screen Urine Negative (Negative); Oxycodone Screen Urine Negative (Negative); Phencyclidine Screen Urine Negative (Negative); Tricyclic Antidepressant Urine Negative (Negative)
[2024-06-23] VITALS (18 sets, daily range): BP systolic 83–148; BP diastolic 55–114; PULSE 72–109; RESP 14–20; TEMP 35.7–36.4; O2SAT 92–97
[2024-06-23] MEDS: IBUPROFEN 400 MG TABLET PO ×2 (00:05→20:30)
[2024-06-23] MEDS: HYDROmorphone 0.5 mg/0.5 ml inj IVP (00:05)
[2024-06-23] MEDS: OMEPRAZOLE 20 MG CAPSULE DR PO ×3 (00:05→21:09)
[2024-06-23] MEDS: 5 % DEXTROSE IN LAC RINGER'S 1,000 ML 125 ML IV ×4 (00:05→23:36)
[2024-06-23] MEDS: PHENobarbitaL 260 MG in 0.9 % SODIUM CHLORIDE 100 ml 100 ML 208 MG IVPB (00:18)
[2024-06-23] MEDS: LORazepam 2 MG/ML inj 1 MG IVP (04:05)
--- NOTE | 2024-06-23 05:30 | PC.NURSE ---
End of shift report [id number]: Pleasant and cooperative with cares. Alert and oriented x 4. Pain to neck, shoulders, back and knees managed with current regimen. CIWA's 4-5. No seizure activity noted this t. Patient reporting feeling uncomfortable at 0330 and unable to fall asleep, call placed to [facility] and one time order for lorazepam 1mg IV to help with discomfort, medication effective and patient laying in bed with eyes closed and breathing even and unlabored. Continent of bladder, using urinal in bed due to tremors when attempting to stand. Denies any SOB or chest pain. Denies any nausea or vomiting, denies headache or sensitivity to light.
[2024-06-23 06:37] LABS: Lactate* 1.8 mmol/L (0.5-1.9)
[2024-06-23 06:43] LABS: Basophils Percent Auto 0.4 % (0.0-3.0); Eosinophils Percent Auto 0.7 % (0.0-7.0); Hematocrit 39.7 % (37.0-53.0); Hemoglobin* 13.7 gm/dL (13.5-17.5); Immature Granulocytes Pct Auto 1.4 %; Lymphocytes Percent Auto 16.2 % (20-44); Mean Corpuscular HGB Conc 35 gm/dL (32-36); Mean Corpuscular Hemoglobin 33 pg (26-34); Mean Corpuscular Volume 95 fL (80-100); Monocytes Percent Auto 11.2 % (0.0-11.0); Neutrophils Percent Auto 70.1 % (42.0-72.0); Platelet Count* 53 K/uL (140-440); RDW Coefficient of Variation % 15.3 % (11.5-15.5); White Blood Count* 2.77 K/uL (4.50-11.00)
[2024-06-23 06:48] LABS: Slide Review Reflex No
[2024-06-23 07:17] LABS: Chloride* 94 mmol/L (96-114); Sodium* 130 mmol/L (135-149)
[2024-06-23 07:20] LABS: Alanine Aminotransferase* 159 U/L (4-50); Alkaline Phosphatase* 99 U/L (40-150); Anion Gap 8 mEq/L (7-15); Aspartate Amino Transferase* 205 U/L (12-35); Bilirubin Direct* 0.5 mg/dL (0.0-0.5); Bilirubin Total* 1.5 mg/dL (0.1-1.5); Blood Urea Nitrogen* 4 mg/dL (7-30); Calcium* 8.6 mg/dL (8.4-10.6); Carbon Dioxide* 28 mmol/L (20-32); Creatinine* 0.6 mg/dL (0.5-1.5); Est. Creatinine Clearance* 149.81; Estimated Glomerular Filt Rate 111 ml/min; Glucose* 156 mg/dL (60-115); Lipase* 337 U/L (23-300); Magnesium* 1.6 mg/dL (1.5-2.6); Total Protein* 6.6 g/dL (6.0-8.3)
[2024-06-23 07:26] LABS: Potassium* 2.9 mmol/L (3.6-5.1)
[2024-06-23] MEDS: THIAMINE 100 MG TABLET 250 MG PO ×2 (08:51→21:10)
[2024-06-23] MEDS: atenoloL 25 MG TABLET PO (08:51)
[2024-06-23] MEDS: MULTIVITAMIN/MINERALS 1 TABLET 1 TAB PO (08:51)
[2024-06-23] MEDS: GABAPENTIN 300 MG CAPSULE 600 MG PO ×2 (08:51→21:09)
[2024-06-23] MEDS: FOLIC ACID 1 MG TABLET PO (08:51)
[2024-06-23] MEDS: SODIUM CHLORIDE 0.9 % (FLUSH) 10 ML SYRINGE 5 ML IVF ×2 (08:52→21:10)
--- NOTE | 2024-06-23 15:49 | PM.IMPN1 ---
Progress Note: A&P Assessment and plan (1) Alcohol withdrawal seizure: Problem details: -Recurrent alcohol withdrawal seizure. Received diazepam and phenobarbital 06/22/24. -CIWA protocol and gabapentin Status: Acute (2) Alcoholic hepatitis: Problem details: Elevated transaminases, AST greater than ALT, likely due to alcohol abuse. 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 Follow clinically Status: Acute (4) Chronic pain: Problem details: Generalized arthritis pain including C-spine, shoulders, feet and ankles. Avoid opiates if possible due to risks with benzodiazepines and substance abuse history. Status: Acute (5) Thrombocytopenia: Problem details: Possibly related to complications of cirrhosis of the liver and portal hypertension Status: Acute (6) Acidosis, lactic: Problem details: Due to alcohol abuse, suspected cirrhosis and seizure episode. Status: Acute (7) Alcohol use disorder: Problem details: Recommend treatment to work towards abstinence Status: Acute Plan 1. Reviewed my impression and recommendations with the patient 2. Answered his questions 3. Patient agreeable to above stated plans and recommendations Time Spent With Patient Total time spent: 50 minutes Subjective Date Seen: 06/23/24 Interval history: Admission history of present illness: ?59 year old male with history of alcohol use disorder and alcohol withdrawal seizures admitted to the hospital with alcohol withdrawal seizure. He was brought to the emergency room by his daughter's boyfriend. He has dropped off and had a seizure while he was checking into the emergency department. Immediately brought back to a room where the seizure spontaneously stopped. He was postictal for a while. He received multiple doses of diazepam and a partial load of phenobarbital. Since then he has been improving with signs and symptoms of withdrawal and had no further seizures. He had a fairly severe lactic acidosis initially. That has improved with time and 2 L of normal saline. Patient is somewhat sedated but is able to answer some questions at this time. He tells me he stop drinking 2 days ago. Unclear why stop drinking but he tells me he is not feeling well and also stopped eating. A reports a poor appetite and nausea but he has not been vomiting. He tells me his biggest concern is his chronic pain problems. He reports generalized musculoskeletal pain especially in his C-spine, shoulders, feet and also residual pain from an L5 fracture. He takes ibuprofen at home for pain management. He was hospitalized in December 2023 in [place] for a syncopal episode that occurred while he was drinking alcohol at a restaurant. Stayed overnight in the emergency department and woke up the next day and went home. [facility] 2024 [facility] [place] [facility] he had a seizure which was probably an alcohol withdrawal seizure. Again hospitalized overnight and discharged to home. He has declined offers of treatment for alcohol use disorder.? 06/23/2024: Hospital day 2. Awake much of the night. By the time I came in to see him around 7:00 this morning he was ready to fall asleep. Receive multiple doses of phenobarbital and lorazepam. Indicates he feels stronger now than he did previously. Denies pain. Denies nausea vomiting. Poor insight regarding association of his physical and mental health with his alcohol use disorder. Exam Narrative: Exam Narrative: I examine him in his hospital room. Appears comfortable now. Vision and hearing are adequate. Alert and oriented x3. Friendly, articulate, cooperative. Midline nasal septum. No conjunctival injection or icterus. Conjugate gaze. Dentition in fair repair. Still has dry buccal mucosa. No petechiae, ecchymosis, jaundice, or cyanosis. Lungs are clear to auscultation. Heart tones with regular rhythm. Abdomen with active bowel sounds, soft, nontender. Extremities without edema. Capillary refill less than 3 seconds in distal extremities. Moves all 4 extremities. No focal motor neurologic deficits. Const: Vital Signs, click to edit/add: Vital Signs - 24 hr 06/22/24 18:47 06/22/24 18:58 06/22/24 19:00 Temperature 98.7 F Pulse Rate 118 H 94 Pulse Rate [Pulse Oximeter] Pulse Rate [Right Pulse Oximeter] 102 H Respiratory Rate 18 14 21 Blood Pressure Blood Pressure [Le ft Arm] Blood Pressure [Ri ght Arm] Blood Pressure [Ri ght Upper Arm] 202/118 H Pulse Oximetry 94 92 91 Oxygen Delivery Me thod Room Air Oxygen Flow Rate 06/22/24 19:02 06/22/24 19:03 06/22/24 19:20 Temperature Pulse Rate 116 H 130 H Pulse Rate [Pulse Oximeter] Pulse Rate [Right Pulse Oximeter] Respiratory Rate 21 23 12 Blood Pressure 164/103 H Blood Pressure [Le ft Arm] Blood Pressure [Ri ght Arm] Blood Pressure [Ri ght Upper Arm] Pulse Oximetry 91 92 Oxygen Delivery Me thod Oxygen Flow Rate 06/22/24 19:21 06/22/24 19:30 06/22/24 19:32 Temperature Pulse Rate 88 93 91 Pulse Rate [Pulse Oximeter] Pulse Rate [Right Pulse Oximeter] Respiratory Rate 18 11 L 17 Blood Pressure 156/96 H 164/105 H Blood Pressure [Le ft Arm] Blood Pressure [Ri ght Arm] Blood Pressure [Ri ght Upper Arm] Pulse Oximetry 94 93 93 Oxygen Delivery Me thod Oxygen Flow Rate 06/22/24 19:45 06/22/24 19:47 06/22/24 20:00 Temperature Pulse Rate 108 H 99 111 H Pulse Rate [Pulse Oximeter] Pulse Rate [Right Pulse Oximeter] Respiratory Rate 12 16 11 L Blood Pressure 160/106 H Blood Pressure [Le ft Arm] Blood Pressure [Ri ght Arm] Blood Pressure [Ri ght Upper Arm] Pulse Oximetry 92 90 93 Oxygen Delivery Me thod Oxygen Flow Rate 06/22/24 20:02 06/22/24 20:15 06/22/24 20:16 Temperature Pulse Rate 104 H 98 110 H Pulse Rate [Pulse Oximeter] Pulse Rate [Right Pulse Oximeter] Respiratory Rate 19 18 17 Blood Pressure 160/101 H 161/105 H Blood Pressure [Le ft Arm] Blood Pressure [Ri ght Arm] Blood Pressure [Ri ght Upper Arm] Pulse Oximetry 92 93 93 Oxygen Delivery Me thod Oxygen Flow Rate 06/22/24 20:17 06/22/24 20:30 06/22/24 20:32 Temperature Pulse Rate 107 H 122 H 119 H Pulse Rate [Pulse Oximeter] Pulse Rate [Right Pulse Oximeter] Respiratory Rate 18 13 20 Blood Pressure 165/105 H Blood Pressure [Le ft Arm] Blood Pressure [Ri ght Arm] Blood Pressure [Ri ght Upper Arm] Pulse Oximetry 94 94 95 Oxygen Delivery Me thod Oxygen Flow Rate 06/22/24 20:45 06/22/24 21:00 06/22/24 21:02 Temperature Pulse Rate 114 H 112 H 109 H Pulse Rate [Pulse Oximeter] Pulse Rate [Right Pulse Oximeter] Respiratory Rate 24 24 15 Blood Pressure 162/107 H Blood Pressure [Le ft Arm] Blood Pressure [Ri ght Arm] Blood Pressure [Ri ght Upper Arm] Pulse Oximetry 96 96 96 Oxygen Delivery Me thod Oxygen Flow Rate 06/22/24 21:24 06/22/24 21:30 06/22/24 21:31 Temperature Pulse Rate 122 H 105 H 109 H Pulse Rate [Pulse Oximeter] Pulse Rate [Right Pulse Oximeter] Respiratory Rate 26 H 17 29 H Blood Pressure 170/106 H Blood Pressure [Le ft Arm] Blood Pressure [Ri ght Arm] Blood Pressure [Ri ght Upper Arm] Pulse Oximetry 92 97 96 Oxygen Delivery Me thod Oxygen Flow Rate 06/22/24 21:34 06/22/24 21:45 06/22/24 21:47 Temperature Pulse Rate 105 H 103 H Pulse Rate [Pulse Oximeter] 114 H Pulse Rate [Right Pulse Oximeter] Respiratory Rate 16 16 15 Blood Pressure 164/105 H Blood Pressure [Le ft Arm] Blood Pressure [Ri ght Arm] 170/106 H Blood Pressure [Ri ght Upper Arm] Pulse Oximetry 95 96 97 Oxygen Delivery Me thod Nasal Cannula Oxygen Flow Rate 3 06/22/24 22:00 06/22/24 22:02 06/22/24 22:15 Temperature Pulse Rate 103 H 103 H 98 Pulse Rate [Pulse Oximeter] Pulse Rate [Right Pulse Oximeter] Respiratory Rate 14 15 11 L Blood Pressure 161/109 H Blood Pressure [Le ft Arm] Blood Pressure [Ri ght Arm] Blood Pressure [Ri ght Upper Arm] Pulse Oximetry 98 98 97 Oxygen Delivery Me thod Oxygen Flow Rate 06/22/24 22:17 06/22/24 22:30 06/22/24 22:31 Temperature Pulse Rate 100 103 H 99 Pulse Rate [Pulse Oximeter] Pulse Rate [Right Pulse Oximeter] Respiratory Rate 6 L 15 14 Blood Pressure 166/117 H 165/111 H Blood Pressure [Le ft Arm] Blood Pressure [Ri ght Arm] Blood Pressure [Ri ght Upper Arm] Pulse Oximetry 97 95 96 Oxygen Delivery Me thod Oxygen Flow Rate 06/22/24 22:32 06/22/24 22:45 06/22/24 22:46 Temperature Pulse Rate 96 96 93 Pulse Rate [Pulse Oximeter] Pulse Rate [Right Pulse Oximeter] Respiratory Rate 15 14 Blood Pressure 156/109 H Blood Pressure [Le ft Arm] Blood Pressure [Ri ght Arm] Blood Pressure [Ri ght Upper Arm] Pulse Oximetry 97 94 94 Oxygen Delivery Me thod Oxygen Flow Rate 06/22/24 23:26 06/22/24 23:26 06/22/24 23:54 Temperature 96.7 F L Pulse Rate Pulse Rate [Pulse Oximeter] 103 H Pulse Rate [Right Pulse Oximeter] Respiratory Rate 20 20 Blood Pressure Blood Pressure [Le ft Arm] 158/120 H Blood Pressure [Ri ght Arm] Blood Pressure [Ri ght Upper Arm] Pulse Oximetry 94 95 94 Oxygen Delivery Me thod Room Air Room Air Oxygen Flow Rate 06/23/24 00:00 06/23/24 02:00 06/23/24 02:43 Temperature 96.7 F L 96.7 F L Pulse Rate 91 Pulse Rate [Pulse Oximeter] 95 89 Pulse Rate [Right Pulse Oximeter] Respiratory Rate 20 18 Blood Pressure Blood Pressure [Le ft Arm] 148/114 H 145/99 H Blood Pressure [Ri ght Arm] Blood Pressure [Ri ght Upper Arm] Pulse Oximetry 95 93 Oxygen Delivery Me thod Room Air Room Air Oxygen Flow Rate 06/23/24 02:43 06/23/24 04:00 06/23/24 06:00 Temperature 97.6 F 96.5 F L Pulse Rate Pulse Rate [Pulse Oximeter] 89 92 89 Pulse Rate [Right Pulse Oximeter] Respiratory Rate 18 18 18 Blood Pressure Blood Pressure [Le ft Arm] 145/98 H 129/107 H Blood Pressure [Ri ght Arm] Blood Pressure [Ri ght Upper Arm] Pulse Oximetry 94 94 Oxygen Delivery Me thod Room Air Room Air Oxygen Flow Rate 06/23/24 07:22 06/23/24 07:31 06/23/24 10:25 Temperature 97.3 F L Pulse Rate 106 H Pulse Rate [Pulse Oximeter] 87 86 Pulse Rate [Right Pulse Oximeter] Respiratory Rate 16 14 Blood Pressure Blood Pressure [Le ft Arm] 130/94 H 118/87 Blood Pressure [Ri ght Arm] Blood Pressure [Ri ght Upper Arm] Pulse Oximetry 94 97 Oxygen Delivery Me thod Room Air Room Air Oxygen Flow Rate 06/23/24 11:13 06/23/24 12:00 06/23/24 14:00 Temperature 96.4 F L Pulse Rate 79 Pulse Rate [Pulse Oximeter] 72 82 Pulse Rate [Right Pulse Oximeter] Respiratory Rate 16 18 Blood Pressure Blood Pressure [Le ft Arm] 105/87 103/86 Blood Pressure [Ri ght Arm] Blood Pressure [Ri ght Upper Arm] Pulse Oximetry 96 97 Oxygen Delivery Me thod Room Air Room Air Oxygen Flow Rate 06/23/24 15:02 Temperature Pulse Rate 84 Pulse Rate [Pulse Oximeter] Pulse Rate [Right Pulse Oximeter] Respiratory Rate Blood Pressure Blood Pressure [Le ft Arm] Blood Pressure [Ri ght Arm] Blood Pressure [Ri ght Upper Arm] Pulse Oximetry Oxygen Delivery Me thod Oxygen Flow Rate Labs Labs: Laboratory Results - last 24 hr 06/22/24 06/22/24 06/22/24 18:45 18:45 18:45 WBC 5.95 RBC 4.44 Hgb 14.4 Hct 44.1 MCV 99 MCH 32 MCHC 33 RDW Coeff of Velasquez 15.5 Plt Count 74 L Neut % (Auto) 54.6 Lymph % (Auto) 24.4 [place] % (Auto) 17.0 H Eos % (Auto) 0.5 Baso % (Auto) 0.3 Neut # (Auto) 3.25 Lymph # (Auto) 1.45 [place] # (Auto) 1.00 H Eos # (Auto) 0.03 Baso # (Auto) 0.02 Abs Immat Gran (auto) 0.19 Imm/Tot Granulo (auto) 3.2 Diff Slide Review Acceptable Review INR 0.96 APTT 24 VBG pH VBG pCO2 VBG pO2 VBG HCO3 Sodium 137 Potassium 3.5 L Chloride 95 L Carbon Dioxide 9 L* Anion Gap 33 H BUN 8 Creatinine 1.2 Estimated Creat Clear 72.75 Estimated GFR 70 Glucose 266 H Lactate 18.0 H* Calcium 9.7 Phosphorus 3.7 Magnesium 1.8 Total Bilirubin 1.8 H Direct Bilirubin AST 368 H ALT 200 H Alkaline Phosphatase 127 Troponin I 0.03 Cancelled Total Protein 8.3 Albumin 5.3 H Lipase 640 H Urine Color Urine Appearance Urine pH Ur Specific [place] Urine Protein Urine Glucose (UA) Urine Ketones Urine Blood Urine Nitrite Urine Bilirubin Urine Urobilinogen Ur Leukocyte Esterase Urine RBC Urine WBC Ur Squamous Epith Cells Urine Bacteria Urine Opiates Screen Ur Oxycodone Screen Urine Methadone Screen Ur Barbiturates Screen U Tricyclic Antidepress Ur Phencyclidine Scrn Ur Amphetamines Screen U Methamphetamines Scrn U Benzodiazepines Scrn Urine Cocaine Screen U Marijuana (THC) Screen Ur Drug Screen Comment Ethyl Alcohol < 0.01 L Cancelled SARS-CoV-2 (PCR) Negative SARS-CoV-2 Influenza Type A (PCR) Negative PCR FLU A Influenza Type B (PCR) Negative PCR FLU B 06/22/24 06/22/24 06/22/24 18:50 19:56 20:30 WBC RBC Hgb Hct MCV MCH MCHC RDW Coeff of Velasquez Plt Count Neut % (Auto) Lymph % (Auto) [place] % (Auto) Eos % (Auto) Baso % (Auto) Neut # (Auto) Lymph # (Auto) [place] # (Auto) Eos # (Auto) Baso # (Auto) Abs Immat Gran (auto) Imm/Tot Granulo (auto) Diff Slide Review INR APTT VBG pH 7.451 H VBG pCO2 33 L VBG pO2 51.7 H VBG HCO3 23 Sodium 133 L Potassium 3.6 Chloride 99 Carbon Dioxide 20 Anion Gap 14 BUN 8 Creatinine 0.9 Estimated Creat Clear 97.00 Estimated GFR 98 Glucose 238 H Lactate Calcium 9.0 Phosphorus Magnesium Total Bilirubin Direct Bilirubin AST ALT Alkaline Phosphatase Troponin I Total Protein Albumin Lipase Urine Color Yellow Urine Appearance Clear Urine pH 7.0 Ur Specific [place] 1.020 Urine Protein 2+ A Urine Glucose (UA) 3+ A Urine Ketones 2+ A Urine Blood Trace-lysed A Urine Nitrite Negative Urine Bilirubin Negative Urine Urobilinogen 2.0 A Ur Leukocyte Esterase Negative Urine RBC 0-2 Urine WBC 0-2 Ur Squamous Epith Cells Few Urine Bacteria None Urine Opiates Screen Negative Ur Oxycodone Screen Negative Urine Methadone Screen Negative Ur Barbiturates Screen POSITIVE A U Tricyclic Antidepress Negative Ur Phencyclidine Scrn Negative Ur Amphetamines Screen Negative U Methamphetamines Scrn Negative U Benzodiazepines Scrn Negative Urine Cocaine Screen Negative U Marijuana (THC) Screen Negative Ur Drug Screen Comment See Note Ethyl Alcohol SARS-CoV-2 (PCR) Influenza Type A (PCR) Influenza Type B (PCR) 06/22/24 06/23/24 21:10 06:09 WBC 2.77 L RBC 4.20 L Hgb 13.7 Hct 39.7 MCV 95 MCH 33 MCHC 35 RDW Coeff of Velasquez 15.3 Plt Count 53 L Neut % (Auto) 70.1 Lymph % (Auto) 16.2 L [place] % (Auto) 11.2 H Eos % (Auto) 0.7 Baso % (Auto) 0.4 Neut # (Auto) 1.90 Lymph # (Auto) 0.40 L [place] # (Auto) 0.30 Eos # (Auto) 0.00 Baso # (Auto) 0.00 Abs Immat Gran (auto) 0.00 Imm/Tot Granulo (auto) 1.4 Diff Slide Review INR APTT VBG pH VBG pCO2 VBG pO2 VBG HCO3 Sodium 130 L Potassium 2.9 L* Chloride 94 L Carbon Dioxide 28 Anion Gap 8 BUN 4 L Creatinine 0.6 Estimated Creat Clear 149.81 Estimated GFR 111 Glucose 156 H Lactate 2.4 H 1.8 Calcium 8.6 Phosphorus Magnesium 1.6 Total Bilirubin 1.5 Direct Bilirubin 0.5 AST 205 H ALT 159 H Alkaline Phosphatase 99 Troponin I Total Protein 6.6 Albumin 4.0 Lipase 337 H Urine Color Urine Appearance Urine pH Ur Specific [place] Urine Protein Urine Glucose (UA) Urine Ketones Urine Blood Urine Nitrite Urine Bilirubin Urine Urobilinogen Ur Leukocyte Esterase Urine RBC Urine WBC Ur Squamous Epith Cells Urine Bacteria Urine Opiates Screen Ur Oxycodone Screen Urine Methadone Screen Ur Barbiturates Screen U Tricyclic Antidepress Ur Phencyclidine Scrn Ur Amphetamines Screen U Methamphetamines Scrn U Benzodiazepines Scrn Urine Cocaine Screen U Marijuana (THC) Screen Ur Drug Screen Comment Ethyl Alcohol SARS-CoV-2 (PCR) Influenza Type A (PCR) Influenza Type B (PCR)
[2024-06-23] MEDS: POTASSIUM CHLORIDE 10 MEQ CAPSULE ER 40 MEQ PO ×2 (16:00→20:30)
--- NOTE | 2024-06-23 18:12 | PC.NURSE ---
Pt. ambulating with walker, transfer belt and assist of one. Telemetry NSR/Sinus Tachycardia. CIWA Scores consistently 4.
[2024-06-23] MEDS: IPRAT-ALBUT 0.5-2.5 MG/3 ML NEB 1 NEB IH (21:09)
[2024-06-24 02:06] VITALS: BP 107/78; PULSE 73; RESP 18; TEMP 35.8; O2SAT 95
[2024-06-24 02:09] VITALS: BP 107/78; PULSE 73; RESP 18; TEMP 35.8; O2SAT 95
--- NOTE | 2024-06-24 05:43 | PC.NURSE ---
1206-2075: Patient A&Ox3 with forgetfulness. Impulsive. 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 A1/walker/GB. Unsteady at times swaying to one side or the other. Patient acknowledges this is normal d/t chronic arthritis and pain in feet/spine. PRN Ibuprofen for chronic pain. CIWAs 5,5, and 5 with no PRN Ativan administered. Denies headache, N/V, CP. Eating and voiding.
[2024-06-24 06:37] LABS: Basophils Percent Auto 0.5 % (0.0-3.0); Eosinophils Percent Auto 3.2 % (0.0-7.0); Hematocrit 36.9 % (37.0-53.0); Hemoglobin* 12.5 gm/dL (13.5-17.5); Immature Granulocytes Pct Auto 1.4 %; Lymphocytes Percent Auto 28.8 % (20-44); Mean Corpuscular HGB Conc 34 gm/dL (32-36); Mean Corpuscular Hemoglobin 33 pg (26-34); Mean Corpuscular Volume 98 fL (80-100); Monocytes Percent Auto 10.4 % (0.0-11.0); Neutrophils Percent Auto 55.7 % (42.0-72.0); Platelet Count* 51 K/uL (140-440); RDW Coefficient of Variation % 15.2 % (11.5-15.5); Red Blood Count 3.77 m/uL (4.30-5.90); White Blood Count* 2.22 K/uL (4.50-11.00)
[2024-06-24 06:44] LABS: Chloride* 100 mmol/L (96-114)
[2024-06-24 06:45] LABS: Sodium* 131 mmol/L (135-149)
[2024-06-24 06:46] LABS: Potassium* 3.9 mmol/L (3.6-5.1)
[2024-06-24 06:47] LABS: Anion Gap 7 mEq/L (7-15); Blood Urea Nitrogen* 7 mg/dL (7-30); Carbon Dioxide* 24 mmol/L (20-32); Creatinine* 0.8 mg/dL (0.5-1.5); Est. Creatinine Clearance* 112.36; Estimated Glomerular Filt Rate 102 ml/min
[2024-06-24 06:48] LABS: Alanine Aminotransferase* 126 U/L (4-50); Alkaline Phosphatase* 84 U/L (40-150); Aspartate Amino Transferase* 251 U/L (12-35); Glucose* 106 mg/dL (60-115); Lipase* 356 U/L (23-300); Phosphorus* 2.1 mg/dL (2.5-4.5); Total Protein* 5.6 g/dL (6.0-8.3)
[2024-06-24 06:49] LABS: Calcium* 8.2 mg/dL (8.4-10.6); Magnesium* 1.5 mg/dL (1.5-2.6)
[2024-06-24 06:51] LABS: C Reactive Protein* 1.7 mg/dL (0.5-1.0)
[2024-06-24 06:58] LABS: Slide Review Reflex No
[2024-06-24 07:00] VITALS: BP 116/86; PULSE 73; PULSE 88; RESP 16; TEMP 36.4; O2SAT 97
[2024-06-24 07:14] LABS: INR 0.93 (0.91-1.10); Prothrombin Time 13.2 Seconds
[2024-06-24] MEDS: 5 % DEXTROSE IN LAC RINGER'S 1,000 ML 125 ML IV (07:52)
[2024-06-24 08:00] VITALS: PULSE 88; RESP 16
[2024-06-24] MEDS: THIAMINE 100 MG TABLET 250 MG PO (09:25)
[2024-06-24] MEDS: atenoloL 25 MG TABLET PO (09:26)
[2024-06-24] MEDS: MULTIVITAMIN/MINERALS 1 TABLET 1 TAB PO (09:26)
[2024-06-24] MEDS: SODIUM CHLORIDE 0.9 % (FLUSH) 10 ML SYRINGE 5 ML IVF (09:26)
[2024-06-24] MEDS: GABAPENTIN 300 MG CAPSULE 600 MG PO (09:26)
[2024-06-24] MEDS: OMEPRAZOLE 20 MG CAPSULE DR PO (09:26)
[2024-06-24] MEDS: FOLIC ACID 1 MG TABLET PO (09:26)
[2024-06-24] MEDS: IPRAT-ALBUT 0.5-2.5 MG/3 ML NEB 1 NEB IH ×2 (09:26→13:33)
[2024-06-24 11:00] VITALS: BP 111/82; PULSE 100; RESP 18; TEMP 36.6; O2SAT 99
--- NOTE | 2024-06-24 15:13 | PC.NURSE ---
DC: Pt alert, oriented and vitally stable. Pt forgetful and impulsive. Pt cleared to move independently in room. Pt states chronic pain rated around 9/10. Tele shows NSR. Pt educated that driving is not allowed for three months following seizure. DC education provided, topics including driving restrictions, medications and follow up. Pt DC home by self at 1400. ?
--- NOTE | 2024-06-24 16:06 | PM.DS1 ---
DS: Providers Provider Date Seen: 06/24/24 Date of admission: 06/22/24 23:12 Primary care physician: Not a Local Provider Admitting Clinician: Mark Blanco MD Consults: 06/22/24 23:14 Consult to Occupational Therapy [CONS] Routine Comment: Reason(s) for OT Consult:: Evaluate and Treat Any Restrictions?:: No Restrictions Consult to Physical Therapy [CONS] Routine Comment: Reason(s) for PT Consult:: Evaluate and Treat Any Restrictions?:: No Restrictions Consult to [employer] [CONS] Routine Comment: Reason for Consult:: Discharge Planning Needs 06/22/24 23:43 Consult to [employer] [CONS] Routine Comment: Reason for Consult:: Abuse, Neglect Potential 06/24/24 09:48 Consult to Occupational Therapy [CONS] Routine Comment: Reason(s) for OT Consult:: Evaluate and Treat Any Restrictions?:: No Restrictions Consult to Physical Therapy [CONS] Routine Comment: Reason(s) for PT Consult:: Evaluate and Treat Any Restrictions?:: No Restrictions Attending Physician on discharge: David Santiago MD Date of Discharge: 06/24/24 DS: Diagnosis Discharge Diagnosis (1) Alcohol withdrawal seizure: Status: Acute Problem details: -Recurrent alcohol withdrawal seizure. Received diazepam and phenobarbital 06/22/24. -CIWA protocol and gabapentin (2) Alcohol use disorder: Status: Acute Problem details: Recommend treatment to work towards abstinence (3) Alcoholic hepatitis: Status: Acute Problem details: Elevated transaminases, AST greater than ALT, likely due to alcohol abuse. 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 Follow clinically (5) Lactic acidosis: Status: Acute Problem details: Resolved with fluids. Likely due to seizure and (6) Abnormal serum level of lipase: Status: Acute (7) Thrombocytopenia: Status: Acute Problem details: Possibly related to complications of cirrhosis of the liver and portal hypertension (8) Chronic pain: Status: Acute Problem details: Generalized arthritis pain including C-spine, shoulders, feet and ankles. Avoid opiates if possible due to risks with benzodiazepines and substance abuse history. (9) Alcohol withdrawal: Status: Acute (10) Acidosis, lactic: Status: Acute Problem details: Due to alcohol abuse, suspected cirrhosis and seizure episode. (11) Hypoxia: Status: Acute DS: Summary Hospital Course Hospital Course: Admission history of present illness: ?59 year old male with history of alcohol use disorder and alcohol withdrawal seizures admitted to the hospital with alcohol withdrawal seizure. He was brought to the emergency room by his daughter's boyfriend. He has dropped off and had a seizure while he was checking into the emergency department. Immediately brought back to a room where the seizure spontaneously stopped. He was postictal for a while. He received multiple doses of diazepam and a partial load of phenobarbital. Since then he has been improving with signs and symptoms of withdrawal and had no further seizures. He had a fairly severe lactic acidosis initially. That has improved with time and 2 L of normal saline. Patient is somewhat sedated but is able to answer some questions at this time. He tells me he stop drinking 2 days ago. Unclear why stop drinking but he tells me he is not feeling well and also stopped eating. A reports a poor appetite and nausea but he has not been vomiting. He tells me his biggest concern is his chronic pain problems. He reports generalized musculoskeletal pain especially in his C-spine, shoulders, feet and also residual pain from an L5 fracture. He takes ibuprofen at home for pain management. He was hospitalized in December 2023 in [place] for a syncopal episode that occurred while he was drinking alcohol at a restaurant. Stayed overnight in the emergency department and woke up the next day and went home. In April of 2024 he was in [place] [facility] the [facility] when he had a seizure which was probably an alcohol withdrawal seizure. Again hospitalized overnight and discharged to home. He has declined offers of treatment for alcohol use disorder.? Patient's level of awareness and alertness and physical abilities gradually normalized with our supportive efforts. On 1st arrival he required large doses of phenobarbital and lorazepam to achieve control of his withdrawal symptoms. He required no additional treatments for the past 36 hours prior to discharge. Reviewed with patient how his alcohol use is causing multiple organ system disease. Strongly advised him to achieve and maintain sobriety hereafter. Seems contemplative about this at this time. Stressed multiple times how he cannot drive any motor vehicle for a minimum of 3 months from the time of his seizure. I indicated to him that he would need to have his primary care physician assessed him and indicate that it is safe for him to drive before he can drive. The earliest this could be would be on 09/25/2024. Additional discharge plans as specified below. Status at Discharge Functional status at discharge: independent ambulation Overall status at discharge: patient is back to baseline Time Spent with Patient Time attestation: Total time spent providing and/or coordinating discharge services: Time spent: Greater than 30 minutes Exam Narrative: Exam Narrative: I examine him in his hospital room. Appears comfortable now. Vision and hearing are adequate. Alert and oriented x3. Friendly, articulate, cooperative. Very talkative. Midline nasal septum. No conjunctival injection or icterus. Conjugate gaze. Dentition in fair repair. Still has dry buccal mucosa. No petechiae, ecchymosis, jaundice, or cyanosis. Lungs are clear to auscultation. Heart tones with regular rhythm. Abdomen with active bowel sounds, soft, nontender. Extremities without edema. Capillary refill less than 3 seconds in distal extremities. Moves all 4 extremities. No focal motor neurologic deficits. Const: Vital Signs, click to edit/add: Vital Signs - 24 hr 06/23/24 19:42 06/23/24 19:52 06/23/24 23:39 Temperature 97.4 F L 97.4 F L 96.2 F L Pulse Rate Pulse Rate [Pulse Oximeter] 89 89 99 Respiratory Rate 20 20 20 Blood Pressure [Le ft Arm] 91/60 91/60 83/71 L Pulse Oximetry 92 92 [facility] Air Oxygen Flow Rate 06/23/24 23:43 06/23/24 23:52 06/24/24 02:06 Temperature 96.2 F L 96.5 F L Pulse Rate 109 H Pulse Rate [Pulse Oximeter] 99 73 Respiratory Rate 20 18 Blood Pressure [Le ft Arm] 83/71 L 107/78 Pulse Oximetry 97 95 [facility] Air Oxygen Flow Rate 06/24/24 02:09 06/24/24 07:00 06/24/24 07:00 Temperature 96.5 F L 97.6 F 97.6 F Pulse Rate Pulse Rate [Pulse Oximeter] 73 88 88 Respiratory Rate 18 16 16 Blood Pressure [Le ft Arm] 107/78 116/86 116/86 Pulse Oximetry 95 97 97 [facility] Room Air Oxygen Flow Rate 3 06/24/24 07:00 06/24/24 08:00 06/24/24 11:00 Temperature 97.8 F Pulse Rate 73 Pulse Rate [Pulse Oximeter] 88 100 Respiratory Rate 16 18 Blood Pressure [Le ft Arm] 111/82 Pulse Oximetry 99 Oxygen Delivery Me thod Room Air Oxygen Flow Rate DS: Data Data Completed and Pending Labs on day of discharge: Labs from last 24 hours 06/24/24 05:57 WBC 2.22 L RBC 3.77 L Hgb 12.5 L Hct 36.9 L MCV 98 MCH 33 MCHC 34 RDW Coeff of Velasquez 15.2 Plt Count 51 L Neut % (Auto) 55.7 Lymph % (Auto) 28.8 [place] % (Auto) 10.4 Eos % (Auto) 3.2 Baso % (Auto) 0.5 Neut # (Auto) 1.20 L Lymph # (Auto) 0.60 L [place] # (Auto) 0.20 Eos # (Auto) 0.10 Baso # (Auto) 0.00 Abs Immat Gran (auto) 0.00 Imm/Tot Granulo (auto) 1.4 INR 0.93 Sodium 131 L Potassium 3.9 Chloride 100 Carbon Dioxide 24 Anion Gap 7 BUN 7 Creatinine 0.8 Estimated Creat Clear 112.36 Estimated GFR 102 Glucose 106 Lactate 2.0 H Calcium 8.2 L Phosphorus 2.1 L Magnesium 1.5 Total Bilirubin 1.0 AST 251 H ALT 126 H Alkaline Phosphatase 84 C-Reactive Protein 1.7 H Total Protein 5.6 L Albumin 3.0 L Lipase 356 H Preliminary micro results at discharge 06/22/24 19:48 Blood Culture - Preliminary Blood NO GROWTH AFTER [address] scan - head: Radiologist's impression: No acute abnormalities. Chest x-ray: Radiologist's impression: No acute abnormalities. Discharge Plan Discharge Disposition: Home, Self-Care Date of Admission: 06/22/24 23:12 Attending Provider on Discharge: David Santiago Primary Care Provider: Provider,Not a Local Condition: Improved Anticipated Discharge Date/Time: 06/24/24 13:30 Discharge Medications: Continued atenolol 25 mg tablet 25 mg PO DAILY ascorbic acid (vitamin C) [Vitamin C] 500 mg tablet 500 mg PO DAILY gabapentin 300 mg capsule 900 mg PO DAILY folic acid 1 mg tablet 1 mg PO DAILY albuterol sulfate [Ventolin HFA] 90 mcg/actuation HFA aerosol inhaler 1 puff INHALATION Q4H PRN cholecalciferol (vitamin D3) 125 mcg (5,000 unit) capsule 125 mcg PO DAILY budesonide-formoterol [Symbicort] 160-4.5 mcg/actuation HFA aerosol inhaler 1 puff INHALATION BID thiamine mononitrate (vit B1) [Vitamin B-1 (mononitrate)] 100 mg tablet 100 mg PO DAILY Spiriva Respimat 2.5 mcg/actuation mist 1 puff INHALATION DAILY Discharge Orders: Discharge Order (Routine); Ordered 06/24/24 Ordered By: David Santiago Patient Education: Nonepileptic Seizures (DC), Alcohol Withdrawal (DC), Alcohol Use Disorder (DC) Additional Instructions: 1. Because of the seizure you just experienced, NO driving of any motor vehicle for the next 3 months ([place] law). May resume driving motor vehicle only after your physician indicates you can resume driving. The earliest you may resume driving is on 25 September 2024, if your physician assesses you and determines you may resume driving. 2. Your use of alcohol is hurting multiple organ systems of your body including your mind and nervous system, your liver, pancreas, bone marrow, and metabolic system. You would do well to remain sober, alcohol-free, for the rest of your life to optimize your physical, psychological, financial health, spiritual health. 3. Follow up with your primary care physician in the next 1-2 weeks, sooner if needed. Activity Level: Activity as Tolerated Discharge Diet: Regular Follow Up Appointments: Bhavani Herzog PA-C [Referring] - 07/01/24 10:00 pm (Follow up at [facility]) Provider,Not a Local [Primary Care Provider] - Forms: [employer] Info Instructions
== END 2024-06-24 14:00 | disposition home or self-care (01) | DRG 896 ==
LOC: ED 21:56 → MEDSURG 23:25
PROVIDERS: Internal Medicine; Admitting Provider Family Medicine; Emergency Provider Emergency Medicine; Visit Provider Family Medicine
DX: F10.239 Alcohol dependence with withdrawal, unspecified (principal); K85.20 Alcohol induced acute pancreatitis without necrosis or infection; E87.21 Acute metabolic acidosis; G40.89 Other seizures; K70.10 Alcoholic hepatitis without ascites; Y90.0 Blood alcohol level of less than 20 mg/100 ml; G89.29 Other chronic pain; D69.6 Thrombocytopenia, unspecified; R09.02 Hypoxemia; R74.8 Abnormal levels of other serum enzymes
CPT/HCPCS: 36415; 70450; 71045; 80048; 80053; 80076; 80306; 81001; 82077; 82803; 83605; 83690; 83735; 84100; 84484; 85025; 85610; 85730; 86140; 87040; 87631; 97112; 97161; 97165; 97530; 97535; 99285; A9153; A9270; J1171; J2060; J2560; J3360; J3411; J7030

== ENCOUNTER 2024-06-30 13:31 | Outpatient (RCR) | payer MEDICAID, SELFPAY | END 2024-10-28 23:59 | disposition home or self-care (01) | PROVIDERS: Visit Provider Internal Medicine | DX: J96.01 Acute respiratory failure with hypoxia (principal); Z91.89 Other specified personal risk factors, not elsewhere classified; Z51.89 Encounter for other specified aftercare | CPT/HCPCS: 97165 ==

== ENCOUNTER 2024-10-11 09:42 | Outpatient (CLI) | payer MEDICAID, SELFPAY | END 2024-10-11 09:43 | disposition home or self-care (01) | LOC: INJ CL 09:46 | PROVIDERS: PCP Student in an Organized Health Care Education/Training Program; Visit Provider Family Medicine | DX: M54.16 Radiculopathy, lumbar region (principal); M51.369 Other intervertebral disc degeneration, lumbar region without mention of lumbar back pain or lower extremity pain | CPT/HCPCS: 62323; J0702; Q9966 ==